=== PATIENT | male | born 1980 | race Caucasian/White ===

== ENCOUNTER 2024-05-24 16:00 | Outpatient (CLI) | payer BC, SELFPAY ==
--- NOTE | 2024-05-24 16:06 | XR_ITS ---
WS: [email or web address] Right elbow, 3 views, 05/24/2024 Clinical Data: pain Comparison: None. Findings: No fractures or dislocations are seen. The radial head is normal. The soft tissues are unremarkable. XR/XR elbow RT min 3V* [id number] Impression: Negative right elbow.
--- NOTE | 2024-05-24 16:06 | XR_ITS ---
WS: [email or web address] Left knee, 3 views, 05/24/2024 Clinical Data: pain Comparison: None. Findings: No fractures or dislocations are seen. The joint spaces are normal. The patella is intact. The soft t issues are unremarkable. XR/XR knee LT 3V* [id number] Impression: Negative left knee. Kellgren-John Classification: grade 0 (none): definite absence of x-ray shabnam nges of osteoarthritis
--- NOTE | 2024-05-24 16:06 | XR_ITS ---
WS: [email or web address] Right knee, 3 views, 05/24/2024 Clinical Data: pain Comparison: None. Findings: No fractures or dislocations are seen. There is minimal narrowing of the medial joint compartment wit h a small spur of the medial tibial plateau. The patella shows no irregularity. The soft tissues are unremarkable. XR/XR knee RT 3V* [id number] Impression: Minimal narrowing of the medial joint compartment of the right knee Kellgren-John Classification: grade 1 (doubtful): doubtful joint space narr owing and possible osteophytic lipping
--- NOTE | 2024-05-24 16:06 | XR_ITS ---
WS: [email or web address] Left shoulder, 3 views, 05/24/2024 Clinical Data: pain Comparison: None. Findings: No fractures or dislocations are seen. The AC joint is normal. The adjacent left clavicle, left scapu la and ribs are normal. The soft tissues are unremarkable. XR/XR shoulder LT min 2V* [id number] Impression: Negative left shoulder.
--- NOTE | 2024-05-24 16:06 | XR_ITS ---
WS: [email or web address] Right shoulder, 3 views, 05/24/2024 Clinical Data: pain Comparison: None. Findings: No fractures or dislocations are seen. The AC joint is normal. The adjacent right clavicle, right sca pula and ribs are normal. The soft tissues are unremarkable. XR/XR shoulder RT min 2V* [id number] Impression: Negative right shoulder.
== END 2024-05-24 16:01 | disposition home or self-care (01) ==
LOC: RAD 16:03
PROVIDERS: Visit Provider Pediatrics
DX: M25.521 Pain in right elbow (principal); M25.511 Pain in right shoulder; M25.512 Pain in left shoulder; M25.561 Pain in right knee; M25.562 Pain in left knee
CPT/HCPCS: 73030; 73080; 73562; 80053; 83036; 85025; G0103

== ENCOUNTER → 2024-06-15 08:09 | Outpatient (BNVA) | payer BC, SELFPAY | PROVIDERS: Visit Provider Specialist | DX: M25.561 Pain in right knee; M25.562 Pain in left knee; M23.92 Unspecified internal derangement of left knee; G89.29 Other chronic pain | CPT/HCPCS: 73560; 73565 ==